=== PATIENT | male | born 1935 | race Caucasian/White ===

== ENCOUNTER 2017-09-01 16:23 | Outpatient (CLI) ==
[2015-12-11 12:25] VITALS: BMI 29.8
== END 2017-09-01 16:24 | disposition home or self-care (01) ==
LOC: LAB 16:23
PROVIDERS: ATTEND Emergency Medicine
DX: E11.9 Type 2 diabetes mellitus without complications (principal); I25.10 Atherosclerotic heart disease of native coronary artery without angina pectoris; J44.9 Chronic obstructive pulmonary disease, unspecified
CPT/HCPCS: 36415; 80053; 80061; 83036; 84443; 85025

== ENCOUNTER 2017-09-11 14:24 | Outpatient (CLI) ==
[2015-12-11 12:25] VITALS: BMI 29.8
--- NOTE | 2017-09-11 15:05 | DI ---
EXAM: Chest two views HISTORY: Chronic obstructive pulmonary disease COMPARISON: 05/23/2010 TECHNIQUE: Two views of the chest were performed FINDINGS: Lungs are hyperinflated. Bibasilar interstitial opacities. Granulomatous calcification. There is no pleural effusion or pneumothorax. The heart is normal in size. The mediastinal contour is normal, noting atherosclerosis. Median sternotomy wires. There are no acute abnormalities of th e bones. Old left rib fractures. IMPRESSION: Hyperinflated lungs suggest chronic obstructive pulmonary disease. Bibasilar interstiti al opacities may represent scarring or fibrosis; however, this appears new from 2010 and differential diagnosis includes interstitial pneumonitis/pneumonia.
== END 2017-09-11 14:25 | disposition home or self-care (01) ==
LOC: RAD 14:24
PROVIDERS: ATTEND Nurse Practitioner Family
DX: J44.9 Chronic obstructive pulmonary disease, unspecified (principal)

== ENCOUNTER 2017-09-23 12:31 | Outpatient (CLI) | payer OTHER ==
[2015-12-11 12:25] VITALS: BMI 29.8
--- NOTE | 2017-09-23 13:53 | DI ---
EXAM: Two views of the chest. History: Pneumonia Comparison: Chest radiograph 09/11/2017 Findings: Heart size is borderline enlarged. Atherosclerotic vascular calcifications. Sternotomy w ires. No significant interval change in the left greater than right bibasilar lung infiltrates and b lunting of the right costophrenic angle. No developing opacities. The visualized osseous structures unchanged with chronic rib deformities. Impression: No significant interval change in the left greater than right bibasilar lung infiltrates could represent fibrosis or pneumonitis. Recommend further evaluation with high-resolution chest CT .
== END 2017-09-23 12:32 | disposition home or self-care (01) ==
LOC: RAD 12:31
PROVIDERS: ATTEND Nurse Practitioner Family
DX: J18.9 Pneumonia, unspecified organism (principal)

== ENCOUNTER 2017-10-21 11:43 | Outpatient (CLI) ==
[2015-12-11 12:25] VITALS: BMI 29.8
--- NOTE | 2017-10-21 14:13 | DI ---
EXAM: Chest two view, frontal and lateral views. HISTORY: Inhalational pneumonitis. COMPARISON: 09/23/2017. FINDINGS: Median sternotomy wires are present. Heart size is normal. Atherosclerotic calcification s noted. Bibasilar reticular opacities are stable from prior study. No new areas of consolidation, pleural effusion or pneumothorax identified. There is no vascular congestion. Multiple old left-adrianna ed rib fractures are present. IMPRESSION: Probable bibasilar fibrosis. Consider follow-up CT as warranted.
== END 2017-10-21 11:44 | disposition home or self-care (01) ==
LOC: RAD 11:43
PROVIDERS: ATTEND Nurse Practitioner Family
DX: J69.8 Pneumonitis due to inhalation of other solids and liquids (principal)

== ENCOUNTER 2017-11-10 15:24 | Outpatient (POV) ==
[2015-12-11 12:25] VITALS: BMI 29.8
== END 2017-11-10 17:00 ==
LOC: OUTPT 15:24
PROVIDERS: ATTEND Otolaryngology
DX: H91.90 Unspecified hearing loss, unspecified ear (principal)
CPT/HCPCS: 92557; 92567

== ENCOUNTER 2018-01-20 16:15 | Inpatient (IN) | payer OTHER ==
[2018-01-20] MEDS ORDERED: TYLENOL PO PRN ×2 (16:36→18:12)
[2018-01-20 17:14] VITALS: BMI 29.2
[2018-01-20] MEDS: SOLU-MEDROL 125 MG IVP SCH ×2 (17:20→21:08)
[2018-01-20] MEDS: SODIUM CHLORIDE 1,000 ML IV SCH (17:24)
[2018-01-20] MEDS: ROCEPHIN 1 GM in SODIUM CHLORIDE 50 ML IV SCH (17:24)
--- NOTE | 2018-01-20 17:35 | CT ---
EXAM: CT scan thorax without contrast HISTORY: Shortness of breath COMPARISON: None. FINDINGS: Contiguous axial images obtained through the thorax without contrast utilizing 5-mm collim ation. Sagittal and coronal reconstructions were imaged and reviewed.. The thoracic inlet is unrema rkable. Subcentimeter lymph nodes are seen in the pretracheal, AP window. Calcified lymph nodes are seen in the right hilum. Heart is normal in size without pericardial effusion. Sternal wire suture s noted from previous CABG The ascending aorta is ectatic measuring 5.1 cm.. The descending thoraci c aorta the same level measures 3.6 cm. There are moderate emphysematous changes with scattered area s of fibrosis and right basilar honeycombing.. Smooth pleural scarring is noted in the posterior gut ter regions. There is calcified granuloma at the left lung base.. There are old healed left-sided ri b fractures. IMPRESSION: Moderately severe emphysematous changes with scattered areas of fibrosis and honeycombing at the righ t lung base. Prior mediastinotomy and CABG. Ectatic ascending and descending thoracic aorta.
[2018-01-20] MEDS ORDERED: VISTARIL INJ IM PRN (18:12)
[2018-01-20] MEDS ORDERED: ATROPINE SULFATE PFS IVP PRN (18:12)
[2018-01-20] MEDS: ZITHROMAX 500 MG in SODIUM CHLORIDE 250 ML IV SCH (18:17)
[2018-01-20] MEDS: PRILOSEC PO SCH (18:17)
[2018-01-20] MEDS: SYMBICORT 160-4.5 MCG INHALER IH SCH (20:10)
[2018-01-20] MEDS: REMERON PO SCH (20:12)
[2018-01-20] MEDS: NEURONTIN PO SCH ×2 (20:12→20:20)
[2018-01-20] MEDS: NORCO 7.5-325 PO SCH (20:14)
[2018-01-20] MEDS ORDERED: GABAPENTIN 400 MG PO SCH (21:00)
[2018-01-20] MEDS ORDERED: NON-FORMULARY MEDICATION (Diazepam [Valium] 10 MG) PO SCH (21:00)
[2018-01-20] MEDS: VALIUM PO SCH (21:07)
[2018-01-21] MEDS: SYNTHROID PO SCH (06:07)
[2018-01-21] MEDS: PRILOSEC PO SCH ×2 (06:07→17:07)
[2018-01-21] MEDS: SODIUM CHLORIDE 1,000 ML IV SCH (06:45)
[2018-01-21] MEDS ORDERED: SYNTHROID PO SCH (09:00)
[2018-01-21] MEDS ORDERED: NON-FORMULARY MEDICATION (Sertraline Hcl [Zoloft] 200 MG) PO SCH (09:00)
[2018-01-21] MEDS ORDERED: NON-FORMULARY MEDICATION (Lisinopril [Zestril] 20 MG) PO SCH (09:00)
[2018-01-21] MEDS ORDERED: SYMBICORT 160-4.5 MCG INHALER IH SCH (09:00)
[2018-01-21] MEDS ORDERED: MIRTAZAPINE 45 MG PO SCH (09:00)
[2018-01-21] MEDS: SYMBICORT 160-4.5 MCG INHALER IH SCH ×2 (09:15→20:17)
[2018-01-21] MEDS: ZOLOFT PO SCH (09:15)
[2018-01-21] MEDS: NORCO 7.5-325 PO SCH ×3 (09:16→20:18)
[2018-01-21] MEDS: ZESTRIL PO SCH (09:16)
[2018-01-21] MEDS: CRESTOR PO SCH (09:16)
[2018-01-21] MEDS: LOPRESSOR PO SCH (09:16)
[2018-01-21] MEDS: ASPIRIN EC PO SCH (09:16)
[2018-01-21] MEDS: PLAVIX PO SCH (09:17)
[2018-01-21] MEDS: NEURONTIN PO SCH ×6 (09:17→20:18)
[2018-01-21] MEDS: SOLU-MEDROL 125 MG IVP SCH ×2 (09:17→20:23)
[2018-01-21] MEDS: VALIUM PO SCH ×2 (09:17→20:18)
[2018-01-21] MEDS: ROCEPHIN 1 GM in SODIUM CHLORIDE 50 ML IV SCH (09:17)
[2018-01-21] MEDS: ZITHROMAX 500 MG in SODIUM CHLORIDE 250 ML IV SCH (10:24)
[2018-01-21] MEDS: REMERON PO SCH (20:18)
[2018-01-22] MEDS: PRILOSEC PO SCH ×2 (05:58→17:27)
[2018-01-22] MEDS: SYNTHROID PO SCH (05:58)
[2018-01-22] MEDS: SODIUM CHLORIDE 1,000 ML IV SCH (06:25)
[2018-01-22] MEDS: NEURONTIN PO SCH ×6 (08:49→21:24)
[2018-01-22] MEDS: CRESTOR PO SCH (08:49)
[2018-01-22] MEDS: ASPIRIN EC PO SCH (08:49)
[2018-01-22] MEDS: ZESTRIL PO SCH (08:49)
[2018-01-22] MEDS: SYMBICORT 160-4.5 MCG INHALER IH SCH ×2 (08:49→21:21)
[2018-01-22] MEDS: PLAVIX PO SCH (08:49)
[2018-01-22] MEDS: LOPRESSOR PO SCH (08:49)
[2018-01-22] MEDS: ZITHROMAX 500 MG in SODIUM CHLORIDE 250 ML IV SCH (08:49)
[2018-01-22] MEDS: VALIUM PO SCH ×2 (08:50→21:24)
[2018-01-22] MEDS: NORCO 7.5-325 PO SCH ×3 (08:50→21:23)
[2018-01-22] MEDS: ZOLOFT PO SCH (08:50)
[2018-01-22] MEDS: SOLU-MEDROL 125 MG IVP SCH ×2 (08:50→21:21)
[2018-01-22] MEDS: ROCEPHIN 1 GM in SODIUM CHLORIDE 50 ML IV SCH (10:54)
--- NOTE | 2018-01-22 11:39 | PN ---
DATE OF SERVICE: 01/21/18 SUBJECTIVE: The patient was admitted from the office with COPD exacerbation and bronchitis. Slightly elevated CK-MB. BNP Is 1485. As the patient has a history of coronary artery disease with status stent and bypass surgery. The patient's is having no chest pain at this time. Still coughing and congested with shortness of breath. REVIEW OF SYSTEMS: CONSTITUTIONAL: No fever, no chills. HEENT: Normal. ENDOCRINE: No weight gain, no weight loss. CVS: No angina symptoms. No CHF symptoms. No palpitations. No atypical chest pain for CAD. Shortness of breath. No PND, no orthopnea. RESPIRATORY: Cough, no hemoptysis. GI: No nausea, no vomiting. No abdominal pain. : No hematuria. No polyuria. MUSCULOSKELETAL: No joint swelling. PSYCHIATRIC: Not anxious. No depression. No suicidal thoughts. No homicidal thoughts. SKIN: Intact. No rash. PHYSICAL EXAMINATION: V/S: Blood pressure 146/80, respiratory rate 20, heart rate 74, temperature 97.6 with saturation 96% on 6 liters. HEENT: Normocephalic, atraumatic. Mucosa dry. Pallor positive. No icterus. NECK: Supple. No JVD, no carotid bruit. No lymphadenopathy. LUNGS:Decreased and basilar crackles with expiratory wheeze decreasing. Clear to auscultation. No rales or rhonchi. HEART: S1, S2 normal. No S3. No murmur, gallop or regurgitation. ABDOMEN: Soft, nontender. Bowel sounds active. No rigidity. No rebound or guarding. No CVA tenderness. EXTREMITIES: No cyanosis, clubbing or pedal edema. MUSCULOSKELETAL: No joint swelling. NEUROLOGIC: Awake, alert, oriented times three. No focal deficit. LYMPHATIC: No lymph nodes palpable. SKIN: Intact. LABS: WBC 4.40, hgb 12.4m, hct 38.2, plt count 179, sodium 138, potassium 4.3, chloride 102, bicarb 29, BUN 9, creatinine 0.79, glucose 170. ASSESSMENT: 1. COPD exacerbation secondary to the bronchitis CT scan showing the honeycombing the right lower lobe most likely bronchiectasis. 2. Acute on chronic heart failure 3. CAD status post bypass surgery 4. Hypertension 5. Dyslipidemia 6. Osteoarthritis 7. DJD spine 8. Chronic pain syndrome 9. Sleep apnea 10.Neurogenic bladder PLAN: 1. Continue Azithromycin 2. Rocephin 3. Solu-Medrol 4. IV fluids at 40ml per hour 5. Daily I&O's TIME SPENT: More than 35 minutes MTDD
[2018-01-22] MEDS: XOPENEX 1.25 MG NEB SCH ×2 (14:12→22:17)
[2018-01-22] MEDS: NITROSTAT SL PRN (19:15)
[2018-01-22] MEDS: REMERON PO SCH (21:23)
[2018-01-23] MEDS: SODIUM CHLORIDE 1,000 ML IV SCH ×2 (01:28→21:28)
[2018-01-23] MEDS: XOPENEX 1.25 MG NEB SCH ×3 (05:10→22:16)
[2018-01-23] MEDS: SYNTHROID PO SCH (05:52)
[2018-01-23] MEDS: PRILOSEC PO SCH ×2 (05:52→16:08)
[2018-01-23] MEDS: ZOLOFT PO SCH (09:52)
[2018-01-23] MEDS: PLAVIX PO SCH (09:53)
[2018-01-23] MEDS: ASPIRIN EC PO SCH (09:53)
[2018-01-23] MEDS: NORCO 7.5-325 PO SCH ×3 (09:53→20:48)
[2018-01-23] MEDS: NEURONTIN PO SCH ×6 (09:53→20:49)
[2018-01-23] MEDS: ZESTRIL PO SCH (09:54)
[2018-01-23] MEDS: VALIUM PO SCH ×2 (09:54→20:49)
[2018-01-23] MEDS: SYMBICORT 160-4.5 MCG INHALER IH SCH ×2 (09:54→20:49)
[2018-01-23] MEDS: LOPRESSOR PO SCH ×2 (09:54→18:34)
[2018-01-23] MEDS: CRESTOR PO SCH (09:54)
[2018-01-23] MEDS: SOLU-MEDROL 125 MG IVP SCH ×2 (09:55→21:28)
[2018-01-23] MEDS: ROCEPHIN 1 GM in SODIUM CHLORIDE 50 ML IV SCH (09:55)
[2018-01-23] MEDS ORDERED: LASIX IVP STA (14:39)
[2018-01-23] MEDS ORDERED: LOVENOX SUBCUT SCH (15:00)
[2018-01-23] MEDS: NITROSTAT SL PRN (17:06)
[2018-01-23] MEDS ORDERED: LANOXIN IVP STA (17:22)
[2018-01-23] MEDS: ELIQUIS PO SCH ×2 (17:33→20:59)
[2018-01-23] MEDS ORDERED: CARDIZEM INJ ONE (18:51)
[2018-01-23] MEDS: REMERON PO SCH (20:49)
[2018-01-24] MEDS: XOPENEX 1.25 MG NEB SCH ×3 (04:48→20:40)
[2018-01-24] MEDS: LOPRESSOR PO SCH ×2 (06:32→20:45)
[2018-01-24] MEDS: PRILOSEC PO SCH ×2 (06:32→16:47)
[2018-01-24] MEDS: SYNTHROID PO SCH (06:32)
[2018-01-24] MEDS: ZESTRIL PO SCH (09:28)
[2018-01-24] MEDS: VALIUM PO SCH ×2 (09:28→21:03)
[2018-01-24] MEDS: ZOLOFT PO SCH (09:28)
[2018-01-24] MEDS: CRESTOR PO SCH (09:29)
[2018-01-24] MEDS: NEURONTIN PO SCH ×6 (09:29→20:45)
[2018-01-24] MEDS: ASPIRIN EC PO SCH (09:29)
[2018-01-24] MEDS: PLAVIX PO SCH (09:29)
[2018-01-24] MEDS: SOLU-MEDROL 125 MG IVP SCH ×2 (09:30→21:03)
[2018-01-24] MEDS: SYMBICORT 160-4.5 MCG INHALER IH SCH ×2 (09:31→20:44)
[2018-01-24] MEDS: ROCEPHIN 1 GM in SODIUM CHLORIDE 50 ML IV SCH (09:31)
[2018-01-24] MEDS: ELIQUIS PO SCH ×2 (09:35→20:45)
--- NOTE | 2018-01-24 10:45 | CT ---
EXAM: CTA of the chest. History: Short of breath Comparison: Chest CT 01/20/2018 Technique: Multiplanar CT images through the thorax were obtained following administration of IV con trast. MIP images and 3-D reconstructions were also acquired. Findings: Heart is enlarged. No pericardial effusion. No change in the 5.1 cm aneurysm of the ascen ding aorta. No pathologically enlarged thoracic lymph nodes. No pulmonary arterial filling defects. Emphysema again noted. There is bronchial wall thickening and persistent mild right lower lobe infi ltrate. No change in the trace left pleural effusion. No pneumothorax. No suspicious lung masses o r lung nodules. Within the visualized upper abdomen, cholelithiasis. The visualized osseous structures unchanged wit h no acute osseous abnormalities identified. Sternotomy wires. Impression: 1. No pulmonary embolism. 2. No change in the mild right lower lobe infiltrate. 3. Stable trace left pleural effusion. 4. Cardiomegaly and coronary artery disease. 5. No change in the 5.1 cm ascending aortic aneurysm. 6. Emphysema. 7. Cholelithiasis
[2018-01-24] MEDS: CARDIZEM PO SCH ×2 (16:47→20:45)
[2018-01-24] MEDS: NORCO 7.5-325 PO SCH ×3 (16:49→21:03)
[2018-01-24] MEDS: REMERON PO SCH (20:44)
[2018-01-25] MEDS: XOPENEX 1.25 MG NEB SCH ×3 (04:36→19:14)
[2018-01-25] MEDS: SYNTHROID PO SCH (05:45)
[2018-01-25] MEDS: PRILOSEC PO SCH ×2 (05:45→16:44)
[2018-01-25] MEDS: CARDIZEM PO SCH ×3 (06:26→21:01)
[2018-01-25] MEDS: SYMBICORT 160-4.5 MCG INHALER IH SCH ×2 (09:22→21:00)
[2018-01-25] MEDS: ZESTRIL PO SCH (09:23)
[2018-01-25] MEDS: ZOLOFT PO SCH (09:23)
[2018-01-25] MEDS: KEFLEX PO SCH ×2 (09:23→21:02)
[2018-01-25] MEDS: PLAVIX PO SCH (09:24)
[2018-01-25] MEDS: SOLU-MEDROL 125 MG IVP SCH ×2 (09:24→21:05)
[2018-01-25] MEDS: LOPRESSOR PO SCH ×2 (09:24→21:01)
[2018-01-25] MEDS: ASPIRIN EC PO SCH (09:24)
[2018-01-25] MEDS: CRESTOR PO SCH (09:24)
[2018-01-25] MEDS: NEURONTIN PO SCH ×6 (09:24→21:13)
[2018-01-25] MEDS: NORCO 7.5-325 PO SCH ×3 (09:25→21:01)
[2018-01-25] MEDS: VALIUM PO SCH ×2 (09:25→21:01)
[2018-01-25] MEDS: ELIQUIS PO SCH ×2 (09:26→21:02)
--- NOTE | 2018-01-25 14:02 | PN ---
DATE OF SERVICE: 01/23/18 SUBJECTIVE: Still complains about the coughing and congestion and shortness of breath and not able to get the phlegm. Saturation on the 4 liters of nasal cannula around 96-97%. REVIEW OF SYSTEMS: CONSTITUTIONAL: No fever, no chills. HEENT: Normal. ENDOCRINE: No weight gain, no weight loss. CVS: No angina symptoms. No CHF symptoms. No palpitations. No atypical chest pain for CAD. No shortness of breath. No PND, no orthopnea. RESPIRATORY: No cough, no hemoptysis. GI: No nausea, no vomiting. No abdominal pain. : No hematuria. No polyuria. MUSCULOSKELETAL: No joint swelling. PSYCHIATRIC: Not anxious. No depression. No suicidal thoughts. No homicidal thoughts. SKIN: Intact. No rash. PHYSICAL EXAMINATION: V/S: Blood pressure 136/78, respiratory rate 16, heart rate 82, temperature 97.5 and saturation 96% on 6 liters. HEENT: Normocephalic, atraumatic. Mucosa dry. Pallor positive. NECK: Supple. No JVD, no carotid bruit. No lymphadenopathy. LUNGS: Decreased and basilar crackles. Clear to auscultation. No rales or rhonchi. HEART: S1, S2 normal. No S3. No murmur, gallop or regurgitation. ABDOMEN: Soft, nontender. Bowel sounds active. No rigidity. No rebound or guarding. No CVA tenderness. EXTREMITIES: No cyanosis, clubbing or pedal edema. MUSCULOSKELETAL: No joint swelling. NEUROLOGIC: Awake, alert, oriented times three. No focal deficit. LYMPHATIC: No lymph nodes palpable. SKIN: Intact. LABS: Sodium 139, potassium 4.5, chloride 104, bicarb 30, BUN 14, creatinine 0.75 and glucose 129, WBC 8.76, hgb 11.5, hct 35.7, plt count 180. ASSESSMENT: 1. Acute on chronic heart failure 2. COPD exacerbation secondary to the bronchitis 3. Right lower lube bronchiectasis per CAT scan 4. Hypertension 5. CAD status post bypass surgery 6. Status post stent 7. Osteoarthritis 8. DJD spine 9. Multiple pain medications PLAN: 1. Lasix 20mg IV push 2. Stop the IV fluids 3. Lovenox for the DVT prophylaxis 4. Continue the Solu-Medrol 8 Q 12 hours 5. Rocephin 1 gram daily 6. Daily I&O's TIME SPENT: More than 35 minutes MTDD
--- NOTE | 2018-01-25 14:29 | ECHO2D ---
Date of Exam: 01/25/18 Ordering Physician: DR. YARITZA WOOD Room #: OP Reason for Echo: COPD, DYSPNEA, CHEST PAIN WITH BREATHING M-Mode Normal Adult Results LV Dimensions Normal Adult Results AoV Opening excursions >1.6 1.4 LVEDD-base- 3.5-5.8 5.7 Ao root dimensions 2.0-3.7 4.3 LVESD-base- 3.1-4.6 L. Atrium dimensions 1.9-3.8 6.0 Post. Wall thickness 0.8-1.1 1.4 IV septum (thickness) 0.7-1.2 1.5 Post. Wall excursion 0.72-1.3 NORMAL Septal motion 0.3 Systolic motion R. Ventricular cavity 1.5-2.0 3.0 LVEF 60% 50% Paradoxical septal wall motion NONE 2-D : ENLARGED LEFT ATRIAL CAVITY--BORDERLINE LEFT VENTRICLE CAVITY-- HYPOKINETIC SEPTUM--NO THROMBUS, NO EFFUSION, CALCIFIC AORTIC AND MITRAL VALVE M-MODE: MV: CALCIFIC MITRAL VALVE ANNULUS--MILD MITRAL STENOSIS AV: CALCIFIC AORTIC VALVE WITH MILD AORTIC STENOSIS TV: NORMAL PV: NORMAL CHAMBER SIZE: ENLARGED LEFT ATRIAL CAVITY--BORDERLINE LEFT VENTRICLE CAVITY-- ENLARGED RIGHT VENTRICLE CAVITY WALL MOTION: HYPOKINETIC SEPTUM PERICARDIUM: NORMAL INTERPRETATION: 1. LEFT VENTRICULAR HYPERTROPHY WITH ENLARGED LEFT ATRIAL CAVITY AND RIGHT VENTRICLE CAVITY 2. BORDERLINE LEFT VENTRICLE ENLARGEMENT 3. HYPOKINETIC SEPTUM WITH EJECTION FRACTION 50% 4. 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 CALCIFIED AORTIC VALVE WITH MILD AORTIC STENOSIS RECOMMEND: COMPLETE ECHO WITH DOPPLER MTDD
[2018-01-25] MEDS: REMERON PO SCH (21:01)
[2018-01-26] MEDS: CARDIZEM PO SCH (04:57)
[2018-01-26] MEDS: XOPENEX 1.25 MG NEB SCH (05:18)
[2018-01-26 05:31] VITALS: BP 152/85; TEMP 97.7
[2018-01-26] MEDS: SYNTHROID PO SCH (05:56)
[2018-01-26] MEDS: PRILOSEC PO SCH (05:57)
--- NOTE | 2018-01-26 08:27 | PN ---
DATE OF SERVICE: 01/22/18 SUBJECTIVE: Still coughing and congestion with shortness of breath with the minimal exertions. REVIEW OF SYSTEMS: CONSTITUTIONAL: No fever, no chills. HEENT: Normal. ENDOCRINE: No weight gain, no weight loss. CVS: No angina symptoms. No CHF symptoms. No palpitations. No atypical chest pain for CAD. No shortness of breath. No PND, no orthopnea. RESPIRATORY: No cough, no hemoptysis. GI: No nausea, no vomiting. No abdominal pain. : No hematuria. No polyuria. MUSCULOSKELETAL: No joint swelling. PSYCHIATRIC: Not anxious. No depression. No suicidal thoughts. No homicidal thoughts. SKIN: Intact. No rash. PHYSICAL EXAMINATION: V/S: Blood pressure 144/77, respiratory rate 24, heart rate 73, temperature 97.5 with saturation 83% on 6 liters. HEENT: Normocephalic, atraumatic. Mucosa dry. Pallor positive. No icterus. NECK: Supple. No JVD, no carotid bruit. No lymphadenopathy. LUNGS: Decreased and basilar crackles with mild expiratory wheeze. Clear to auscultation. No rales or rhonchi. HEART: S1, S2 normal. No S3. No murmur, gallop or regurgitation. ABDOMEN: Soft, nontender. Bowel sounds active. No rigidity. No rebound or guarding. No CVA tenderness. EXTREMITIES: No cyanosis, clubbing or pedal edema. MUSCULOSKELETAL: No joint swelling. NEUROLOGIC: Awake, alert, oriented times three. No focal deficit. LYMPHATIC: No lymph nodes palpable. SKIN: Intact. LABS: WBC 8.76, hgb 11.5, hct 35.7, plt count 180, sodium 139, potassium 4.5, chloride 104, bicarb 30, BUN 14, creatinine 0.[address] scan showing the right lower lobe honeycombing most likely bronchiectasis ASSESSMENT: 1. COPD exacerbation secondary to the bronchitis 2. Acute on chronic heart failure 3. CAD 4. Bypass surgery 5. Hypertension PLAN: 1. Continue Rocephin 2. Azithromycin 3. DUO NEBS 4. Solu-Medrol TIME SPENT: More than 35 minutes MTDD
[2018-01-26] MEDS: SYMBICORT 160-4.5 MCG INHALER IH SCH (09:00)
[2018-01-26] MEDS ORDERED: FLONASE NAS SCH (09:00)
[2018-01-26] MEDS: NEURONTIN PO SCH ×2 (09:01)
[2018-01-26] MEDS: ZOLOFT PO SCH (09:01)
[2018-01-26] MEDS: CRESTOR PO SCH (09:01)
[2018-01-26] MEDS: ASPIRIN EC PO SCH (09:02)
[2018-01-26] MEDS: KEFLEX PO SCH (09:02)
[2018-01-26] MEDS: VALIUM PO SCH (09:02)
[2018-01-26] MEDS: LOPRESSOR PO SCH (09:02)
[2018-01-26] MEDS: ZESTRIL PO SCH (09:02)
[2018-01-26] MEDS: PLAVIX PO SCH (09:02)
[2018-01-26] MEDS: NORCO 7.5-325 PO SCH (09:02)
[2018-01-26] MEDS: SOLU-MEDROL 125 MG IVP SCH (09:09)
[2018-01-26] MEDS: ELIQUIS PO SCH (09:10)
--- NOTE | 2018-01-26 10:59 | PN ---
DATE OF SERVICE: 01/25/18 SUBJECTIVE: Sitting in the bed and not in any distress. Rate is controlled around 91 to 94 irregular. Eliquis been started. The patient is getting echocardiogram today. CT with PE protocol is negative, shows some infiltrates. REVIEW OF SYSTEMS: CONSTITUTIONAL: No fever, no chills. HEENT: Normal. ENDOCRINE: No weight gain, no weight loss. CVS: No angina symptoms. No CHF symptoms. No palpitations. No atypical chest pain for CAD. Shortness of breath. No PND, no orthopnea. RESPIRATORY: Cough and congestion, no hemoptysis. GI: No nausea, no vomiting. No abdominal pain. : No hematuria. No polyuria. MUSCULOSKELETAL: No joint swelling. PSYCHIATRIC: Not anxious. No depression. No suicidal thoughts. No homicidal thoughts. SKIN: Intact. No rash. PHYSICAL EXAMINATION: V/S: Blood pressure 143/82, respiratory rate 22, heart rate 86, temperature 97.2 and saturation 95%. HEENT: Normocephalic, atraumatic. Mucosa dry. NECK: Supple. No JVD, no carotid bruit. No lymphadenopathy. LUNGS: Decreased and basilar crackles. Clear to auscultation. No rales or rhonchi. HEART: S1, S2 normal. No S3. Irregular. No murmur, gallop or regurgitation. ABDOMEN: Soft, nontender. Bowel sounds active. No rigidity. No rebound or guarding. No CVA tenderness. EXTREMITIES: No cyanosis, clubbing or pedal edema. MUSCULOSKELETAL: No joint swelling. NEUROLOGIC: Awake, alert, oriented times three. No focal deficit. LYMPHATIC: No lymph nodes palpable. SKIN: Intact. LABS: Sodium 141, potassium 4.6, chloride 101, bicarb 31, BUN 24, creatinine 0.92 and glucose 193. WBC 11.76, hgb 13.2, hct 41.8, plt count 235 ASSESSMENT: 1. New onset atrial fibrillation 2. Acute on chronic heart failure 3. COPD exacerbation secondary to the bronchitis 4. CAD 5. Bypass surgery 6. Hypertension 7. Dyslipidemia 8. Osteoarthritis 9. DJD spine TIME SPENT: More than 35 minutes MTDD
--- NOTE | 2018-01-26 11:12 | PN ---
DATE OF SERVICE: 01/24/18 SUBJECTIVE: Once I came back home from seeing the patient the nurse called me saying that the patient went into the atrial fibrillation. Rate was in the 130's and 140's. We gave a dose of 1.25 Digoxin and still the rate was high so Cardizem 10mg IV push was given which did decrease the rate. The patient was started on the Eliquis 5mg twice a day. CT chest with the PE protocol was done. I came and examined the patient. TIME SPENT: More than 35 minutes MTDD
--- NOTE | 2018-01-26 11:16 | PN ---
DATE OF SERVICE: 01/24/18 SUBJECTIVE: The patient still having some cough and congestion and shortness of breath with minimal exertion. REVIEW OF SYSTEMS: CONSTITUTIONAL: No fever, no chills. HEENT: Normal. ENDOCRINE: No weight gain, no weight loss. CVS: No angina symptoms. No CHF symptoms. No palpitations. No atypical chest pain for CAD. Shortness of breath. No PND, no orthopnea. RESPIRATORY: Cough, no hemoptysis. GI: No nausea, no vomiting. No abdominal pain. : No hematuria. No polyuria. MUSCULOSKELETAL: No joint swelling. PSYCHIATRIC: Not anxious. No depression. No suicidal thoughts. No homicidal thoughts. SKIN: Intact. No rash. PHYSICAL EXAMINATION: V/S: BLood pressure 143/90, respiratory rate 18, heart rate 91, temperature 97.6 with saturation 97% on 6 liters. HEENT: Normocephalic, atraumatic. Mucosa dry. NECK: Supple. No JVD, no carotid bruit. No lymphadenopathy. LUNGS: Decreased and basilar crackles. Clear to auscultation. No rales or rhonchi. HEART: S1, S2 normal. No S3. No murmur, gallop or regurgitation. ABDOMEN: Soft, nontender. Bowel sounds active. No rigidity. No rebound or guarding. No CVA tenderness. EXTREMITIES: No cyanosis, clubbing or pedal edema. MUSCULOSKELETAL: No joint swelling. NEUROLOGIC: Awake, alert, oriented times three. No focal deficit. LYMPHATIC: No lymph nodes palpable. SKIN: Intact. LABS: WBC 8.76, hgb 11.5, hct 35.7, plt count 180, sodium 139, potassium 4.5, chloride 104, bicarb 30, BUN 14, creatinine 0.75, glucose 129. ASSESSMENT: 1. COPD exacerbation secondary to the bronchitis 2. Acute on chronic heart failure 3. CAD status post bypass surgery 4. Hypertension 5. Dyslipidemia 6. Osteoarthritis 7. DJD spine PLAN: 1. Continue the Rocephin, Solu-Medrol and DUO NEBS 2. Daily I&O's TIME SPENT: More than 35 minutes MTDD
--- NOTE | 2018-01-27 08:52 | DS ---
DATE OF SERVICE: 01/26/18 FINAL DIAGNOSIS: 1. COPD exacerbation secondary to the bronchitis 2. Pulmonary fibrosis 3. Acute on chronic heart failure 4. CAD status post [place] and bypass surgery 1985 and 2016 5. Temporal arthritis 6. Hypertension 7. Dyslipidemia 8. COPD 9. 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 30.New onset atrial fibrillation DISCHARGE INSTRUCTIONS: Discharge the patient to the home. Continue the rest of the home medications. MEDICATIONS AT DISCHARGE: Symbicort Plavix Valium Neurontin Lortab Synthroid Zestril Remeron Prilosec Crestor Zoloft Eliquis Flonase Lopressor NEW PRESCRIPTIONS: Flonase two sprays in each nostril Omnicef 300mg twice a day Prednisone 10mg twice a day for 5 days DIET INSTRUCTIONS: Cardiac and healthy ACTIVITY: As much as tolerated DISEASE SPECIFIC EDUCATION: COPD Pneumonia Heart failure Fluid overload been discussed and verbalized understanding. HOSPITAL COURSE: Moses Martinez 82 year old male with multiple medical problems came to the office with cough and congestion, shortness of breath. The patient was given a dose of Decadron there as the patient was wheezing and admitted to the hospital. WBC was normal, D-dimer 846. ABG showed the pH 7.369, pCO2 51.5, pO2 94. CT chest showed the right lower lobe atelectasis versus honeycombing appearance and underline possible pneumonia. BNP was 1485. Urine negative. The patient was started on the Rocephin, Solu-Medrol and started feeling some better but on Thursday the patient again went into the atrial fibrillation and rapid rate. IV Digoxin was given and then Cardizem 10mg IV push was given which did control the rate and started on the Cardizem 30mg three times a day. Eliquis 5mg twice a day was started. [employer] anticoagulation and risk of GI bleed and intracranial bleed been discussed. The patient initially thought that he wanted to go to the halfway. Repeat chest x-ray was getting better. Today the patient decided that he wants to go home. The patient's is in the bed with him. The patient is being discharged home. At the time of discharge the patient' s blood pressure 152/85, respiratory rate 20, heart rate 92, temperature 97.8 with saturation 94 on the 6 liters. TIME SPENT: MORE THAN 65 MINUTES MTDD
== END 2018-01-26 11:50 | disposition home or self-care (01) | DRG 202 ==
LOC: MEDSURG B 16:15
PROVIDERS: ADMIT Emergency Medicine; ATTEND Emergency Medicine
DX: J40 Bronchitis, not specified as acute or chronic (principal); K85.90 Acute pancreatitis without necrosis or infection, unspecified; J44.1 Chronic obstructive pulmonary disease with (acute) exacerbation; J84.10 Pulmonary fibrosis, unspecified; I50.9 Heart failure, unspecified; I25.10 Atherosclerotic heart disease of native coronary artery without angina pectoris; I10 Essential (primary) hypertension; I48.91 Unspecified atrial fibrillation; E78.5 Hyperlipidemia, unspecified; K21.9 Gastro-esophageal reflux disease without esophagitis; K27.9 Peptic ulcer, site unspecified, unspecified as acute or chronic, without hemorrhage or perforation; N31.9 Neuromuscular dysfunction of bladder, unspecified; K57.90 Diverticulosis of intestine, part unspecified, without perforation or abscess without bleeding; F41.8 Other specified anxiety disorders; R06.02 Shortness of breath; M47.9 Spondylosis, unspecified; J47.9 Bronchiectasis, uncomplicated; M19.90 Unspecified osteoarthritis, unspecified site; G89.29 Other chronic pain; G89.4 Chronic pain syndrome; F51.9 Sleep disorder not due to a substance or known physiological condition, unspecified; I25.2 Old myocardial infarction; G47.30 Sleep apnea, unspecified; Z79.01 Long term (current) use of anticoagulants; Z77.012 Contact with and (suspected) exposure to uranium; Z85.46 Personal history of malignant neoplasm of prostate; Z95.1 Presence of aortocoronary bypass graft
CPT/HCPCS: 36415; 80053; 80162; 81001; 82550; 82553; 82803; 83880; 84443; 84484; 85025; 85379; 93005; 93010; 94640